=== PATIENT | female | born 1960 | race Caucasian/White ===

== ENCOUNTER 2023-02-10 07:58 | Outpatient (CLI) | payer BC, SELFPAY ==
--- NOTE | 2023-02-10 08:45 | ECG_ITS ---
Measurements Intervals [place] Rate: 56 P: 59 [place]: 125 QRS: 40 QRSD: 79 T: 44 QT: 461 QTc: 448 Interpretive Statements SINUS BRADYCARDIA OTHERWISE WITHIN NORMAL LIMITS NO PREVIOUS ECG AVAILABLE FOR COMPARISON Electronically Signed On 02-10-2023 16:55:01 CDT by Dre Baugh M.D.
[2023-02-10 09:17] LABS: Basophils Percent Auto 0.4 % (0.2-1.2); Eosinophils Absolute Auto 0.2 K/mm3 (0-0.3); Hematocrit 39.1 % (37.0-47.0); Hemoglobin 12.6 g/dL (12.0-15.0); Immature Granulocyte Absolute 0.02 K/mm3 (0.00-0.031); Immature Granulocyte Percent A 0.3 % (0-0.5); Lymphocytes Absolute Auto 1.23 K/mm3 (0.9-3.2); Lymphocytes Percent Auto 16.5 % (18.3-44.2); Mean Corpuscular HGB Conc 32.2 g/dl (32-36); Mean Corpuscular Hemoglobin 31.8 pg (26-34); Mean Corpuscular Volume 98.7 fl (80-100); Monocytes Absolute Auto 0.6 K/mm3 (0.1-0.6); Monocytes Percent Auto 8.1 % (2.6-8.5); Neutrophils Absolute Auto 5.4 K/mm3 (1.3-6.7); Neutrophils Percent Auto 71.7 % (45.5-73.1); Platelet Count Result 142 k/mm3 (150-375); Red Blood Count 3.96 M/mm3 (4.2-5.4); Red Cell Distribution Width 12.1 % (11.5-14.5); White Blood Count 7.5 K/mm3 (4.5-10.0)
[2023-02-10 09:27] LABS: Alanine Aminotransferase 20 U/L (6-35); Albumin Level 3.9 g/dL (3.5-5.1); Alkaline Phosphatase 70 U/L (38-126); Anion Gap 3 mmol/L (8-16); Aspartate Amino Transferase 33 U/L (14-36); Bilirubin,Total 0.4 mg/dL (0.2-1.3); Blood Urea Nitrogen 18 mg/dL (7-17); Calcium 8.6 mg/dL (8.4-10.2); Carbon Dioxide 32 mmol/L (22-30); Chloride 100 mmol/L (98-107); Estimated Glomerular Filt Rate > 60; Glucose 97 mg/dL (65-110); Potassium 3.7 mmol/L (3.4-5.0); Sodium 135 mmol/L (137-145)
[2023-02-10 09:29] LABS: Partial Thromboplastin Time 28.8 SECONDS (22.3-36.8); Prothrombin Time 13.8 Seconds (11.1-14.7)
== END 2023-02-10 07:59 | disposition home or self-care (01) ==
LOC: ANHSURGERY 08:06
PROVIDERS: PCP Nurse Practitioner Family; Visit Provider Urology
DX: N81.4 Uterovaginal prolapse, unspecified (principal); E78.00 Pure hypercholesterolemia, unspecified; Z01.818 Encounter for other preprocedural examination
CPT/HCPCS: 36415; 80053; 85025; 85610; 85730; 93005

== ENCOUNTER 2023-02-24 02:50 | Day surgery (SDC) | payer BC, SELFPAY ==
--- NOTE | 2023-02-10 07:54 | PC.NURSE ---
PRE-OP INSTRUCTIONS, PLEASE READ CAREFULLY Report to the Outpatient Waiting Room, entrance under the green pavilion located off [facility], at time _0915_ on date _02/24/23_. Planned Procedure Time: _1115_. PACK A SMALL OVERNIGHT BAG AND LEAVE IN THE CAR Time changes happen often and if your time is changed the preop area will call you the afternoon before. - You and your visitor will be asked to self-screen and do not enter if you have any COVID symptoms. - A mask is optional within the hospital at this time. -VISITING HOURS 8AM-8PM Patients may have clear liquids (water, carbonated beverages, clear teas, apple juice) until 3 hours prior to surgery (0815 AM) with a maximum of 20 ounces. - No food from midnight until time of surgery Take the following medications with a SIP of water the morning of surgery: _ESCITALOPRAM_ DO NOT STOP ANY OF YOUR OTHER PRESCRIPTION MEDICATIONS PRIOR TO SURGERY ?EXCEPT THE FOLLOWING Medications to discontinue per DR. YADAV - _MULTIVITAMIN/SUPPLEMENTS 7 DAYS PRIOR TO SURGERY (PER PATIENT), Date to take last dose 02/16/23_ Please no make-up, nail libyan, hairspray, perfume, deodorant, or body powder the day of surgery. No jewelry (including any body piercings) or valuables the day of surgery, leave them at home. Please take a shower or bath the night before, or the morning of, surgery with an antibacterial soap. Wear comfortable, loose fitting clothing. - Jewelry must be removed prior to entering the operating room. Rings and piercings that are not removed may be cut off. - The hospital will not accept responsibility for valuables. - Please leave all valuables, including medications, at home the day of surgery. If you are going home after surgery, a licensed drivers license examiner must drive you home. - NO public transportation without another adult if you receive anesthesia. - We recommend that an adult stay with you for 24 hours following discharge. - We also recommend that you do not drive, make important decision, drink alcoholic beverages, or take any drugs that were not prescribed by your health care provider for at least 24 hours after your discharge time. Follow any additional instructions given to you from your surgeon. If you or anyone in your household have experienced Covid symptoms in the past week, please notify your surgeon or the nurse liaison at the phone number below for possible testing. Instructions given to _PATIENT_and asked if any additional questions and then verbalized understanding. Patient advised to call surgeon office or pre surgery nurse liaison [phone] if any additional questions.
[2023-02-10 08:17] VITALS: BP 140/80; PULSE 64; RESP 18; TEMP 37.1; O2SAT 100; BMI 19.3
--- NOTE | 2023-02-16 20:57 | PM.IMHP ---
H&P: HPI History of Present Illness Date/Time: 02/16/23 20:57 Chief Complaint: uterine prolapse Narrative: has bothersome uterine prolapse as well as occult stress incontinence. Desires a surgical approach Review of Systems Review of Systems: All systems reviewed & are unremarkable except as noted in HPI and below PMFSH Social History Social History Smoking status: Never smoker Second hand tobacco smoke exposure: No Alcohol intake: current Drinks per week: 3 Substance use: never Substance use type: does not use Living arrangements: with family Spiritual care concerns: No Meds Home Medications and Allergies Home Medications Medication Instructions Recorded Confirmed Type calcium carbonate 600 mg-vitamin 1 tablet PO DAILY 02/10/23 02/10/23 History D3 5 mcg (200 unit) tablet cranberry 2 tab-cap DAILY 02/10/23 02/10/23 History cyanocobalamin (vitamin B-12) 5,000 mcg PO DAILY 02/10/23 02/10/23 History 5,000 mcg capsule escitalopram oxalate 10 mg tablet 10 mg QAM 02/10/23 02/10/23 History ggzyueoy-piepaotz-urx C 250 3 tablet PO DAILY 02/10/23 02/10/23 History mg-herbal no.124 11.66 mg chewable tablet (Airborne Gummy) multivitamin 1 tablet PO DAILY 02/10/23 02/10/23 History pravastatin 20 mg tablet 20 mg HS 02/10/23 02/10/23 History Allergies Allergy/AdvReac Type Severity Reaction Status Date / Time cefdinir [From Omnicef] AdvReac Nausea and Verified 02/10/23 08:20 Vomiting levofloxacin [From Levaquin] AdvReac Nausea and Verified 02/10/23 08:20 Vomiting Sulfa (Sulfonamide AdvReac Nausea and Verified 02/10/23 08:20 Antibiotics) Vomiting Exam Narrative: no acute distress normal breathing alert oriented x3 urethral hypermobility noted apex at +6 female perineal laxity Assessment and Plan Assessment and plan (1) Uterine prolapse: Code(s): N81.4 - Uterovaginal prolapse, unspecified Status: Acute Assessment and Plan: plan for robotic sacral colpopexy. Understands risks of bleeding, infection, recurrence of prolapse, vaginal mesh extrusion, urinary tract mesh erosion, obstructive voiding requiring secondary procedure, recurrent or persistent stress incontinence, dyspareunia, recurrence of prolapse. May need a perineal repair as well. Agrees to proceed.
--- NOTE | 2023-02-23 06:49 | PM.IMHP ---
H&P: HPI History of Present Illness Date/Time: 02/23/23 06:49 Chief Complaint: Uterine prolapse stress incontinence Narrative: 63-year-old female uterine prolapse stress incontinence admitted for robotic supracervical hysterectomy bilateral salpingo-oophorectomy sacral colpopexy sling. She has found these problems to be socially and daily interfering with normal activity. Risks and benefits of this procedures were reviewed include exclusive of , aspiration bleeding perforation injury to bowel, bladder, ureters, other internal with need for open laparotomy. She received the [employer] handout entitled hysterectomy as well as the [place] handout. She had all questions answered asked to proceed PMFSH Social History Social History Smoking status: Never smoker Second hand tobacco smoke exposure: No Alcohol intake: current Drinks per week: 3 Substance use: never Substance use type: does not use Living arrangements: with family Spiritual care concerns: No Meds Home Medications and Allergies Home Medications Medication Instructions Recorded Confirmed Type calcium carbonate 600 mg-vitamin 1 tablet PO DAILY 02/10/23 02/10/23 History D3 5 mcg (200 unit) tablet cranberry 2 tab-cap DAILY 02/10/23 02/10/23 History cyanocobalamin (vitamin B-12) 5,000 mcg PO DAILY 02/10/23 02/10/23 History 5,000 mcg capsule escitalopram oxalate 10 mg tablet 10 mg QAM 02/10/23 02/10/23 History xaapknjs-sxkuppuc-kjl C 250 3 tablet PO DAILY 02/10/23 02/10/23 History mg-herbal no.124 11.66 mg chewable tablet (Airborne Gummy) multivitamin 1 tablet PO DAILY 02/10/23 02/10/23 History pravastatin 20 mg tablet 20 mg HS 02/10/23 02/10/23 History Allergies Allergy/AdvReac Type Severity Reaction Status Date / Time cefdinir [From Omnicef] AdvReac Nausea and Verified 02/10/23 08:20 Vomiting levofloxacin [From Levaquin] AdvReac Nausea and Verified 02/10/23 08:20 Vomiting Sulfa (Sulfonamide AdvReac Nausea and Verified 02/10/23 08:20 Antibiotics) Vomiting Exam Const: General: cooperative, healthy appearing and comfortable Nutritional Appearance: average body habitus Orientation/consciousness: oriented to person, oriented to place and oriented to time HENMT: Head: normal to inspection Resp: Effort & Inspection: normal respiratory effort Cardio: Rate: regular rate Rhythm: regular rhythm Heart sounds: S1 normal heart sound present and S2 normal heart sound present GI: Inspection: normal to inspection : External Female Exam: Abnormal introitus Speculum Exam - Vagina: normal appearance of the vagina Speculum Exam - Cervix: normal appearance of the cervix Bimanual exam- vagina & uterus: uterine size normal Bimanual Exam- Adnexa, other: normal adnexae Assessment and Plan Assessment and plan (1) Uterine prolapse: Code(s): N81.4 - Uterovaginal prolapse, unspecified Status: Acute Plan Robotic supracervical hysterectomy and bilateral salpingo-oophorectomy. Dr. House will follow l with sacral colpopexy and possible sling
[2023-02-24] VITALS (9 sets, daily range): BP systolic 105–143; BP diastolic 65–92; PULSE 46–65; RESP 13–16; TEMP 36.6–36.8; O2SAT 94–100
--- NOTE | 2023-02-24 06:59 | WPDHPUPDATE1 ---
History and Physical Update Update Date/Time: 02/24/23 06:59 History and Physical has been reviewed, including an updated exam of the patient. There are NO changes in the patient's condition. Risks, benefits, and alternatives have been discussed and questions answered. Patient agrees to proceed with procedure.
--- NOTE | 2023-02-24 07:18 | WPDHPUPDATE1 ---
History and Physical Update Update Date/Time: 02/24/23 07:18 History and Physical has been reviewed, including an updated exam of the patient. There are NO changes in the patient's condition. Risks, benefits, and alternatives have been discussed and questions answered. Patient agrees to proceed with procedure.
[2023-02-24] MEDS: ACETAMINOPHEN 500 MG TABLET 1000 MG PO (10:32)
[2023-02-24] MEDS: LACTATED RINGERS 1,000 ML 30 ML IV CONT ×2 (10:41→14:57)
[2023-02-24] MEDS: KETOROLAC 15 MG/ML VIAL (*BKC) IV PUSH (11:03)
--- NOTE | 2023-02-24 11:29 | P.PNAN_ITS ---
Anes - Initial Pre Proc Eval Procedure: Operation Date: 02/24/23 11:15 Proposed Procedures p Robotic Sacrocolpopexy - Woodrow House MD s Robotic Assisted Supracervical Hysterectomy, Bilateral Salpingo-oophorectomy - Darius Peacock MD Date/Time: 02/24/23 11:29 Surgeon: Woodrow House MD Pre Op Diagnosis: uterine prolapse Patient Data Age: 63 Gender: F Height: 1.66 m Weight: 51.5 kg Last Vital Signs Temp 97.9 F 02/24/23 10:53 Pulse 65 02/24/23 10:53 Resp 16 02/24/23 10:53 BP 131/92 H 02/24/23 10:53 Pulse Ox 100 02/24/23 10:53 O2 Del Method Room Air 02/24/23 10:53 Allergies Allergy/AdvReac Type Severity Reaction Status Date / Time cefdinir [From Omnicef] AdvReac Nausea and Verified 02/24/23 10:17 Vomiting levofloxacin [From Levaquin] AdvReac Nausea and Verified 02/24/23 10:17 Vomiting Sulfa (Sulfonamide AdvReac Nausea and Verified 02/24/23 10:17 Antibiotics) Vomiting Home Medications Medication Instructions Recorded Confirmed Type calcium carbonate 600 mg-vitamin 1 tablet PO DAILY 02/10/23 02/24/23 History D3 5 mcg (200 unit) tablet cranberry 2 tab-cap DAILY 02/10/23 02/24/23 History cyanocobalamin (vitamin B-12) 5,000 mcg PO DAILY 02/10/23 02/24/23 History 5,000 mcg capsule escitalopram oxalate 10 mg tablet 10 mg QAM 02/10/23 02/24/23 History jaqojqfy-suowbhny-bmd C 250 3 tablet PO DAILY 02/10/23 02/24/23 History mg-herbal no.124 11.66 mg chewable tablet (Airborne Gummy) multivitamin 1 tablet PO DAILY 02/10/23 02/24/23 History pravastatin 20 mg tablet 20 mg HS 02/10/23 02/24/23 History Laboratory Tests 02/24/23 09:51 Blood Type A Positive Antibody Screen Pending Patient hx anesthesia problems: none Family hx anesthesia problems: none Results Review: All pre-operative results and documents have been reviewed as part of the pre- operative evaluation. PMFSH Social History Social History Smoking status: Never smoker Second hand tobacco smoke exposure: No Alcohol intake: current Drinks per week: 3 Substance use: never Substance use type: does not use Living arrangements: with family Spiritual care concerns: No Anes - Eval Final PreProcedure Day of Procedure 02/24/23 11:29 Patient weight: normal Heart: regular rate and rhythm Lungs: clear to auscultation Airway: Mallampati scale class II Neurological: alert and oriented Last oral intake: >/= 8 hours ASA classification: II Emergent: no Anesthetic plan: proceed Anesthesia type and monitoring: general ETT and standard monitoring Results Review: All pre-operative results and documents have been reviewed as part of the pre- operative evaluation. Informed Consent: The patient's anesthetic plan and its attendant risks and benefits were discussed with the patient/family/POA. Questions were solicited and answers provided to the satisfaction of the patient/family/POA.
[2023-02-24] MEDS: ceFAZolin 2 GM/D5W 50 ML 2 GM/50 ML BAG IVPB (11:36)
[2023-02-24] MEDS: metroNIDAZOLE 500 MG/ISO 100ML 500 MG/100 ML BAG 100 MG IVPB ×2 (12:01→20:55)
--- NOTE | 2023-02-24 12:33 | W.PM.PROC2 ---
Procedure Note - Detailed Date of Procedure 02/24/23 Pre-op Diagnosis uterine prolapse Post-op Diagnosis Same Procedure Performed Robotic supracervical hysterectomy and bilateral salpingo-oophorectomy Surgeon Darius Peacock MD Anesthesia General Indications This 63-year-old female with complete uterine prolapse Findings Complete prolapse/normal appearing tubes and ovaries Description of Procedure Patient was prepped draped in the normal sterile fashion placed in the dorsal lithotomy position. Under excellent general endotracheal anesthesia weighted speculum was placed in posterior fornix of vagina. Complete prolapse was noted. An anterior the cervix grasped with single-tooth Durant's cannula inserted and attached to use for uterine manipulation. A 16 Lebanese catheter placed in bladder and the bladder was drained of clear urine. The weighted speculum was removed. Dr. Vance proceeded from there to dock the robot. Please see his operative report for full details. Once robot undocked the left round ligament was grasped, burned, cut. Anteriorly a bladder flap was formed by sharply dissecting the peritoneum and resecting this posteriorly neck caudally from the uterus and cervix to the opposite round ligament was clamped, burned, cut. Next the left infundibulopelvic structure was skeletonized to remove the ovary and tube. This was serially clamped, burned, cut and brought to the level of previously cut round ligament. In like fashion removing the right fallopian tube and ovary. , the infundibulopelvic structure was clamped, burned, cut and brought to the level of previously cut round ligament. Next the cardinal broad ligaments on the left were serially skeletonized clamping burning cutting and hugging the cervix and uterus until the uterine vessels could be seen on the left. These were individually clamped, burned, cut. In like fashion on the right the cardinal broad ligaments were skeletonized clamping burning and cutting until the uterine vessels could be seen on the right. These were individually clamped, burned, cut. Blanching of the uterus was noted. A supracervical incision was made. And the uterus tubes and ovaries were placed in an Endo-Catch. Blood loss to this point was 5cc. All sponge, needle, instrument were correct. Dr. House took part from there and please see his operative report for the completion of the procedure Estimated Blood Loss 5 Drains No Packing No Pathology Yes Complications No immediate complications Condition Stable Disposition No change
--- NOTE | 2023-02-24 15:52 | W.PM.PROC2 ---
Procedure Note - Detailed Date of Procedure 02/24/23 Pre-op Diagnosis uterine prolapse Stress incontinence Female perineal laxity Post-op Diagnosis Same Procedure Performed robotic assisted laparoscopic sacral colpopexy urethral sling perineal repair /perineoplasty cystoscopy Surgeon Woodrow House MD Anesthesia General Indications this is a woman with uterine prolapse, stress incontinence, and female perineal laxity. They present for surgery. They understand risks of bleeding, infection, damage to surrounding organs, damage to the bowel or urinary tract, diskitis, recurrence of prolapse, recurrent or persistent stress incontinence, vaginal or urinary tract mesh exposure, obstructive voiding requiring secondary procedure, hip and leg pain, dyspareunia, and other perioperative intraoperative and postoperative complications. They agreed to proceed. Findings See dictation Description of Procedure She was correctly identified. Informed consent is obtained. She was brought to the operating room. She was given general anesthesia. She was placed in the dorsal lithotomy position. All pressure points were padded. She was given appropriate perioperative antibiotics. A time-out was performed. Of note she had a very large uterine prolapse 70 cm beyond the vaginal introitus I anesthetized the skin 3 fingerbreadths cephalad to the umbilicus. I incised the skin. I grasped the fascia with Carlitos clamps. I entered the fascia sharply in a Hason type technique. I placed Vicryl sutures for later fascial closure. the midline trocar was placed. Under direct vision 2 additional trocars were placed in the right and left upper quadrant. She was placed in steep Trendelenburg. The robot was docked. I turned her over to her prototype assembler electronics for their portion of the procedure. That will be dictated in a separate op note. I then sat at the console. With a Sizer in the vagina I created a plane on the anterior and posterior vaginal wall for several cm taking great care not to injure the vagina bladder or rectum. I introduced the mesh into the abdomen. I sewed the anterior leaf of the mesh on the anterior vaginal wall and the posterior leaflet of mesh on the posterior vaginal wall with multiple sutures of 2 0 [place]-Florian taking great care not to go through and through. I reflected the colon laterally. I opened up the posterior peritoneum over the sacral promontory and carried this incision into the cul-de-sac. I freed up the edges for later retroperitonealization of the mesh. Of note. There was scarring in this area of the retroperitoneum. This could have been due to previous diverticulitis. i located the anterior longitudinal ligament of the sacrum. It was cleaned off of all fatty tissues. I tensioned my mesh appropriately. I went to the bedside to perform a vaginal exam. There was good apical support without undue tension. I then sewed the proximal leaflet of mesh onto the anterior longitudinal ligament with 5 sutures of 2 0 [place]-Florian. I then used a 2 0 Monocryl to meticulously retroperitonealized all mesh. I allowed the colon to go back into its normal anatomic location. There is no signs of any impingement. The public relations assistant port was closed with an 0 Vicryl suture using a Jared-Jam device. The specimen was extracted. The abdomen was exited. Fascial sutures were closed. Additional suture was placed Mayo closed the fascia. wounds were irrigated. Skin was closed with Monocryl as well as surgical glue. She was then repositioned and prepped for perineal surgery. I anesthetized the kandace-shaped area of skin on the perineum. I removed this area of skin. I performed a classic perineal repair with 0 Vicryl suture. I used a 2 0 Vicryl to close the mucosa. There was excellent perineal support without undue narrowing of the vagina. I then marked out the inner thigh incisions. I anesthetized the skin and made those incisions. I then
[2023-02-24] MEDS: fentaNYL CITRATE INJ (*CRX) 100 MCG/2 ML VIAL 25 MCG IV PUSH ×3 (16:11→16:27)
--- NOTE | 2023-02-24 16:45 | PC.NURSE ---
This patient, Aliya Linn, was received from PACU on 02/24/23 at 1645. Patient/family oriented to unit policies and routines.
[2023-02-24] MEDS: KCL 20 MEQ/D5/0.45% SOD CHL 1,000 ML 100 ML IV CONT (17:12)
[2023-02-24] MEDS: KETOROLAC 30 MG/ML VIAL (*BKC) IV PUSH (19:12)
[2023-02-24] MEDS: PRAVASTATIN SODIUM 20 MG TABLET BY MOUTH (21:12)
[2023-02-25 00:11] VITALS: BP 104/61; PULSE 54; RESP 18; TEMP 36.8; O2SAT 97
[2023-02-25] MEDS: metroNIDAZOLE 500 MG/ISO 100ML 500 MG/100 ML BAG 100 MG IVPB ×2 (04:40→12:54)
[2023-02-25 05:00] VITALS: BP 102/61; PULSE 46; RESP 16; TEMP 36.6; O2SAT 95
--- NOTE | 2023-02-25 06:59 | PM.GYNPNOP ---
DIRECTOR CLINICAL OPERATIONS - A/P Postoperative Procedures: Procedures Operation Date: 02/24/23 11:15 Actual Procedure Side Surgeon p Robotic Sacrocolpopexy, Uretheral Sling, Perineal Repair Not Applicable Woodrow House MD s Robotic Assisted Supracervical Hysterectomy, Bilateral Salpingo-oophorectomy Bilateral Darius Peacock MD Postoperative day: 1 Postoperative status: doing well Postoperative plan: routine post-op care, see orders, advance diet, voiding trials and discharge Time Spent With Patient Time: Total time spent is greater than 50% in coordination of care (as documented) at patient's floor/unit and/or counseling patient: Time with patient: less than 15 minutes DIRECTOR CLINICAL OPERATIONS- PN:Subj Post-Op Subjective Date/time seen: 02/25/23 06:59 Subjective: patient reports feeling better, patient has no complaints, patient desires discharge, pain is well controlled and patient is tolerating oral intake Exam Const: General: cooperative, healthy appearing and comfortable Nutritional Appearance: average body habitus Orientation/consciousness: oriented to person, oriented to place and oriented to time Resp: Effort & Inspection: normal respiratory effort GI: Inspection: normal to inspection and incision (Wounds are clean dry and intact) DIRECTOR CLINICAL OPERATIONS - PN: Obj Data Vital Signs Vital Signs: Vital Signs - 24 hr 02/24/23 10:53 02/24/23 15:05 02/24/23 15:20 Temperature 97.9 F 98.1 F Pulse Rate 65 63 55 L Respiratory Rate 16 14 16 Blood Pressure 131/92 H 132/80 142/82 H Pulse Oximetry 100 100 100 Oxygen Delivery Room Air Simple Face Mask Simple Face Mask Oxygen Flow Rate 8 8 02/24/23 15:35 02/24/23 15:50 02/24/23 16:05 Temperature Pulse Rate 52 L 56 L 54 L Respiratory Rate 14 15 15 Blood Pressure 143/87 H 133/79 122/79 Pulse Oximetry 100 100 96 Oxygen Delivery Simple Face Mask Room Air Room Air Oxygen Flow Rate 8 02/24/23 16:20 02/24/23 17:10 02/24/23 21:12 Temperature 98.0 F 98.2 F Pulse Rate 46 L 53 L 58 L Respiratory Rate 13 16 14 Blood Pressure 111/66 105/65 117/75 Pulse Oximetry 94 95 99 Oxygen Delivery Room Air Oxygen Flow Rate 02/25/23 00:11 Temperature 98.3 F Pulse Rate 54 L Respiratory Rate 18 Blood Pressure 104/61 Pulse Oximetry 97 Oxygen Delivery Oxygen Flow Rate Intake/Output Intake/Output: Intake & Output 02/22/23 02/23/23 02/24/23 02/25/23 23:59 23:59 23:59 23:59 Intake Total 1999 Output Total 1500 Balance 1999 -1499 Meds/Results Medications: Active Medications Generic Name Dose Route Start Last Admin Trade Name Freq PRN Reason Stop Dose Admin Acetaminophen 650 mg 02/24/23 16:39 Acetaminophen 325 Mg Tablet PO Q4H PRN Mild Pain (1-3) or Fever Hydrocodone Bitart/Acetaminophen 1 tab 02/24/23 16:39 Hydrocodone/Acetaminophen (*Crx) 5-325 Mg Tablet PO Q4H PRN Pain Rated 4-5 Diphenhydramine HCl 25 mg 02/24/23 16:39 Diphenhydramine Hcl Inj 50 Mg/Ml Vial IV PUSH Q6H PRN Itching Docusate Sodium 100 mg 02/25/23 09:00 Docusate Sodium 100 Mg Capsule PO DAILY [facility] Enoxaparin Sodium 30 mg 02/25/23 09:00 Enoxaparin 30 Mg/0.3 Ml Syringe SUB-Q DAILY [facility] Escitalopram Oxalate 10 mg 02/25/23 09:00 Escitalopram Oxalate 10 Mg Tablet BY MOUTH QAM [facility] Metronidazole 500 mg in 100 mls @ 100 mls/hr 02/24/23 20:00 02/25/23 04:40 Flagyl 500 Mg/Iso Soln 100 Ml IVPB 100 mls/hr Q8H ALDO Administration Potassium Chloride/Dextrose/Sod Cl 1,000 mls @ 100 mls/hr 02/24/23 16:39 02/24/23 17:12 Kcl 20 Meq/D5/0.45% Sod Chl IV CONT 100 mls/hr .Q10H ALDO Administration Ketorolac Tromethamine 30 mg 02/24/23 16:39 02/24/23 19:12 Ketorolac 30 Mg/Ml Vial (*Bkc) IV PUSH 30 mg Q8H PRN Administration Pain Rated 5 or Less Miscellaneous Information 1 each 02/24/23 00:01 Lovenox Dosing For Prophylaxis Is 40mg Daily If Ecrcl Greater Than 30. This Patients Is 4 XX 03/26/23 00:00 ALLISON
[2023-02-25 08:33] VITALS: BP 101/57; PULSE 53; RESP 16; TEMP 37.1; O2SAT 98
--- NOTE | 2023-02-25 10:09 | WPDANESPN ---
Anes - Prog Note Post-Op Date/Time: 02/25/23 10:09 Cardiovascular status: normal Respiratory status: normal Airway patency: baseline Mental status: baseline Post-Op hydration status: normal Vital Signs: Last Vital Signs Temp 37.1 C 02/25/23 08:33 Pulse 53 L 02/25/23 08:33 Resp 16 02/25/23 08:33 BP 101/57 L 02/25/23 08:33 Pulse Ox 98 02/25/23 08:33 O2 Del Method Room Air 02/24/23 16:20 O2 Flow Rate 8 02/24/23 15:35 Pain Score (VAS): 0 I/O: Intake & Output 02/24/23 02/25/23 02/25/23 23:59 07:59 15:59 Intake Total 850 640 Output Total 1500 Balance 850 -860 02/24/23 09:51 Blood Type A Positive Antibody Screen Negative Post-procedural complaints: none Patient Feedback: Patient satisfied with anesthetic care.
[2023-02-25] MEDS: HYDROcodone/acetaminophen (*CRX) 5-325 MG TABLET 1 TAB PO (10:36)
[2023-02-25] MEDS: DOCUSATE SODIUM 100 MG CAPSULE PO (10:37)
[2023-02-25] MEDS: ESCITALOPRAM OXALATE 10 MG TABLET BY MOUTH (10:37)
[2023-02-25] MEDS: ENOXAPARIN 40 MG/0.4 ML SYRINGE SUB-Q (10:37)
[2023-02-25] MEDS: KCL 20 MEQ/D5/0.45% SOD CHL 1,000 ML 100 ML IV CONT (10:46)
[2023-02-25 15:30] VITALS: BP 101/63; PULSE 59; RESP 18; TEMP 36.8; O2SAT 99
== END 2023-02-25 17:12 | disposition home or self-care (01) ==
LOC: ANHSURGERY 09:11 → ANHOB2 16:42
PROVIDERS: Obstetrics & Gynecology; PCP Nurse Practitioner Family; Visit Provider Urology
PROC: (CPT 57425; principal; 2023-02-24 11:15)
PROC: (CPT 58542; 2023-02-24 11:15)
DX: N81.3 Complete uterovaginal prolapse (principal); D25.2 Subserosal leiomyoma of uterus; N39.3 Stress incontinence (female) (male)
CPT/HCPCS: 58542; 57288; 57425; S2900 ×2; 36415; 86850; 86900; 86901; 88307; 99199; A9270; C1758; C1769; C1771; C1781; J0690; J1100; J1170; J1650; J1836; J1885; J2250; J2405; J2704; J3010; J3480; J7030; J7120